=== PATIENT | male | born 1995 | race Caucasian/White ===

== ENCOUNTER 2021-06-21 14:42 | Emergency (ER) | payer BC ==
[2021-06-21 17:06] LABS: Urine Blood 3+ (Negative); Urine Glucose Negative (Negative); Urine Protein Trace (Negative); Urine Specific Gravity 1.025 (1.005-1.030); Urine pH 5.5 (5.0-7.0)
--- NOTE | 2021-06-21 17:43 | ER ---
Nurse's Notes [facility] Name: Brandon Moya Age: 26 yrs Sex: Male : 1995 Arrival Date: 06/21/2021 Time: 14:57 Bed Waiting Private MD: Diagnosis: Presentation: 06/21 15:21 Chief complaint: Patient states: Pain into L testes and orange urine since Tuesday. ll1 Started having left lower back pain today with nausea. Thinks it might be a kidney stone. No fever. Coronavirus screen: Client denies travel out of the [place] in the last 14 days. At this time, the client does not indicate any symptoms associated with coronavirus-19. Ebola Screen: Patient denies travel to an Ebola-affected area in the 21 days before illness onset. Initial Sepsis Screen: Does the patient meet any 2 criteria? No. Patient's initial sepsis screen is negative. Does the patient have a suspected source of infection? No. Patient's initial sepsis screen is negative. Risk Assessment: Do you want to hurt yourself or someone else? Patient reports no desire to harm self or others. Onset of symptoms was June 15, 2021. 15:21 Method Of Arrival: Ambulatory ll1 15:21 Acuity: CADEN 3 ll1 Historical: - Allergies: 15:23 No Known Allergies; ll1 - PMHx: 15:23 None; ll1 - PSHx: 15:23 None; ll1 - Immunization history:: Flu vaccine is not up to date. - Social history:: Smoking status: Patient reports the use of cigarette tobacco products, chewing tobacco, Patient denies any tobacco usage or history of. Vital Signs: 15:21 BP 152 / 99; Pulse 85; Resp 17; Temp 99.1; Pulse Ox 100% ; Weight 86.18 kg; Height 6 ll1 ft. 0 in. (182.88 cm); 15:21 Body Mass Index 25.77 (86.18 kg, 182.88 cm) ll1 ED Course: 14:57 Patient arrived in ED. ds1 15:23 Triage completed. ll1 15:23 Arm band placed on. ll1 Administered Medications: No medications were administered Outcome: 17:43 Patient left the ED. ll1 Signatures: Tere Bazan ds1 Jonh, Lynsay, RN RN ll1
[2021-06-21 17:48] VITALS: BP 152/99; TEMP 99.1; O2SAT 100
== END 2021-06-21 17:43 | disposition left against medical advice (07) ==
LOC: ER 14:42
DX: N50.812 Left testicular pain (principal); F17.210 Nicotine dependence, cigarettes, uncomplicated; Z53.21 Procedure and treatment not carried out due to patient leaving prior to being seen by health care provider
CPT/HCPCS: 81003